=== PATIENT | female | born 1990 ===

== ENCOUNTER 2017-09-15 17:43 | Emergency (ER) | payer MEDICAID ==
[2017-09-15 18:03] VITALS: BP 106/75; PULSE 78; RESP 16; TEMP 97.8; O2SAT 98
[2017-09-15] MEDS ORDERED: guaiFENesin 200 mg/10 ml Syrup UD PO ONE (18:41)
--- NOTE | 2017-09-15 18:43 | C.PDOC ---
History Of Present Illness 26yo female, presents to ED for 3 days of tactile fever, ear pain, sore throat and cough. Patient denies any shortness of breath, chest pain, recent travels or sick contacts. She has no other medical complaints. Time Seen by Provider: 09/15/17 18:18 Chief Complaint (Nursing): ENT Problem History Per: Patient History/Exam Limitations: no limitations Onset/Duration Of Symptoms: Days (3) Current Symptoms Are (Timing): Still Present Additional History Per: Patient Past Medical History Reviewed: Historical Data, Nursing Documentation, Vital Signs Vital Signs: Last Vital Signs Temp 97.8 F 09/15/17 18:00 Pulse 78 09/15/17 18:00 Resp 16 09/15/17 18:00 BP 106/75 09/15/17 18:00 Pulse Ox 98 09/15/17 18:43 - Medical History PMH: No Chronic Diseases Surgical History: No Surg Hx Family History: States: No Known Family Hx - Social History Hx Alcohol Use: No Hx Substance Use: No - Immunization History Hx Influenza Vaccination: No Review Of Systems Constitutional: Positive for: Fever (tactile) ENT: Positive for: Ear Pain, Throat Pain Cardiovascular: Negative for: Chest Pain Respiratory: Positive for: Cough. Negative for: Shortness of Breath Physical Exam - Physical Exam Appears: Non-toxic, No Acute Distress Skin: Normal Color, Warm Head: Atraumatic, Normacephalic Eye(s): bilateral: Normal Inspection, PERRL, EOMI Ear(s): Bilateral: Normal Nose: Normal Oral Mucosa: Moist Throat: Normal, No Erythema, No Exudate Neck: Normal Cardiovascular: Rhythm Regular Respiratory: Normal Breath Sounds ED Course And Treatment O2 Sat by Pulse Oximetry: 98 (RA) Pulse Ox Interpretation: Normal Progress Note: Robitussin 400 mg PO and Motrin 600 mg PO ordered. Upon re-eval, patient feels much better and is stable for discharge home. Disposition Counseled Patient/Family Regarding: Diagnosis, Need For Followup, Rx Given - Disposition Referrals: [facility] [Outside] Disposition: HOME/ ROUTINE Disposition Time: 18:41 Condition: STABLE Additional Instructions: Follow up with the clinic in 2 days without fail for further evaluation. Take medication as prescribed. Return to the ER at any time for any new or worsening symptoms. 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 - Scribe Statement The provider has reviewed the documentation as recorded by the Wisam Queen Provider Attestation: All medical record entries made by the Wisam were at my direction and personally dictated by me. I have reviewed the chart and agree that the record accurately reflects my personal performance of the history, physical exam, medical decision making, and the department course for this patient. I have also personally directed, reviewed, and agree with the discharge instructions and disposition.
[2017-09-15] MEDS ORDERED: guaiFENesin 200 mg/10 ml Syrup UD ONE (18:54)
== END 2017-09-15 19:12 | disposition home or self-care (01) ==
LOC: C.ER 17:43
DX: B34.9 Viral infection, unspecified (principal)